=== PATIENT | male | born 1950 | race Two or more races ===

== ENCOUNTER → 2017-05-24 | Emergency (ER) | payer OTHER ==
[~2017-05-24] VITALS: Ht 172.7 cm; Wt 91.2 kg
[~2017-05-24] MED LIST: TORADOL10 MG PO
== END | disposition home or self-care (01) ==
LOC: ER 13:54 → CPU-OBS 14:02 → ER 14:02
DX: R07.89 Other chest pain (principal); K29.70 Gastritis, unspecified, without bleeding
CPT/HCPCS: 93005; G0378; G0379

== ENCOUNTER → 2017-05-27 | Outpatient (CLI) | payer OTHER ==
[~2017-05-27] VITALS: Ht 152.4 cm; Wt 91.2 kg
[~2017-05-27] MED LIST changes: +HYZAAR 100-251 EACH
== END | disposition home or self-care (01) ==
LOC: PPHC 14:03
DX: Z00.8 Encounter for other general examination (principal)

== ENCOUNTER 2017-06-03 06:31 | Outpatient (CLI) | payer OTHER | END 2017-06-03 06:37 | disposition home or self-care (01) | LOC: LAB 06:31 | DX: I10 Essential (primary) hypertension (principal); E11.9 Type 2 diabetes mellitus without complications; Z00.00 Encounter for general adult medical examination without abnormal findings ==

== ENCOUNTER 2017-06-23 13:56 | Outpatient (CLI) | payer OTHER | END 2017-06-23 16:15 | disposition home or self-care (01) | LOC: SONOGRAMA 13:56 | DX: R10.13 Epigastric pain (principal) ==

== ENCOUNTER 2017-08-10 06:26 | Outpatient (CLI) | payer OTHER | END 2017-08-10 07:06 | disposition home or self-care (01) | LOC: LAB 06:26 | DX: Z11.3 Encounter for screening for infections with a predominantly sexual mode of transmission (principal); R50.9 Fever, unspecified ==

== ENCOUNTER 2018-12-23 10:43 | Outpatient (CLI) | payer OTHER | END 2018-12-23 10:49 | disposition home or self-care (01) | LOC: RAD 10:43 | DX: M54.2 Cervicalgia (principal) ==

== ENCOUNTER 2018-12-27 06:11 | Outpatient (CLI) | payer OTHER | END 2018-12-27 06:28 | disposition home or self-care (01) | LOC: LAB 06:11 | DX: K21.9 Gastro-esophageal reflux disease without esophagitis (principal); Z00.00 Encounter for general adult medical examination without abnormal findings; Z12.11 Encounter for screening for malignant neoplasm of colon; I10 Essential (primary) hypertension; Z12.5 Encounter for screening for malignant neoplasm of prostate; Z13.6 Encounter for screening for cardiovascular disorders ==

== ENCOUNTER 2020-12-02 08:00 | Outpatient (CLI) | payer OTHER | END 2020-12-02 18:50 | disposition home or self-care (01) | LOC: LAB 08:00 | DX: I10 Essential (primary) hypertension (principal); N40.0 Benign prostatic hyperplasia without lower urinary tract symptoms; N39.0 Urinary tract infection, site not specified; E55.9 Vitamin D deficiency, unspecified; D64.89 Other specified anemias; E78.49 Other hyperlipidemia; E03.8 Other specified hypothyroidism ==

== ENCOUNTER → 2022-05-27 15:46 | Outpatient (CLI) | payer OTHER | END | disposition home or self-care (01) | LOC: LAB 14:06 | PROVIDERS: ATTEND General Practice | DX: N40.0 Benign prostatic hyperplasia without lower urinary tract symptoms (principal); I11.9 Hypertensive heart disease without heart failure; E78.00 Pure hypercholesterolemia, unspecified; R42 Dizziness and giddiness; D64.9 Anemia, unspecified ==